=== PATIENT | female | born 1995 | race African-American/Black ===

== ENCOUNTER 2017-09-11 06:28 | Emergency (ER) | payer MEDICAID, OTHER ==
[~2017-09-11] VITALS: Ht 170.2 cm; Wt 116.0 kg
[2017-09-11] MEDS ORDERED: ONDANSETRON HCL 4MG/2ML VIAL IV STA (12:07)
[2017-09-11] MEDS ORDERED: SODIUM CHLORIDE 0.9% 1,000 ML IV ONE (12:07)
[2017-09-11 12:37] LABS: CHLORIDE 106 mEq/L (98-107)
[2017-09-11 12:43] LABS: BASOPHILS % 0.4 % (0.0-2.0); HCG SCREEN NEGATIVE; HEMATOCRIT. 33.3 % (36.0-48.0); MEAN CORPUSCULAR HEMOGLOBIN 20.6 pg (28.0-32.0); MEAN CORPUSCULAR VOLUME 68.3 fL (81.0-99.0); MEAN PLATELET VOLUME 9.6 fl (7.4-10.4); MONOCYTES % 8.6 % (2.0-8.0); PLATELET 393 x1000/uL (130-400); RED BLOOD CELL COUNT 4.87 mill/uL (4.2-5.4); RED CELL DISTRIBUTION WIDTH 20.5 % (11.6-14.6)
[2017-09-11 13:37] LABS: PLATELET ESTIMATE NORMAL
[2017-09-11 13:53] LABS: CLARITY URINE CLEAR (CLEAR); COLOR URINE YELLOW (YELLOW); KETONES URINE 4+ (NEGATIVE); LEUKOCYTE ESTERASE URINE NEGATIVE (NEGATIVE); NITRITE URINE NEGATIVE (NEGATIVE); OCCULT BLOOD URINE NEGATIVE (NEGATIVE); PH URINE 8.5 (4.5-8.0); PROTEIN URINE 1+ (NEGATIVE); SPECIFIC GRAVITY URINE 1.033 (1.005-1.030)
[2017-09-11] MEDS ORDERED: KCL 20MEQ/100ML PREMIX 100 ML IV ONE (14:00)
[2017-09-11 14:28] LABS: *AMPHETAMINES SCREEN URINE NEGATIVE (NEGATIVE); *BARBITURATES SCREEN URINE NEGATIVE (NEGATIVE); *BENZODIAZEPINES SCREEN URINE NEGATIVE (NEGATIVE); *COCAINE SCREEN URINE NEGATIVE (NEGATIVE); METHADONE URINE SCREEN NEGATIVE (NEGATIVE); PHENCYCLIDINE URINE SCREEN NEGATIVE (NEGATIVE)
[2017-09-11 14:30] LABS: CANNABINOID URINE SCREEN PRESUMTIVE POSITIVE (NEGATIVE); OPIATES URINE SCREEN PRESUMTIVE POSITIVE (NEGATIVE)
[2017-09-11] MEDS ORDERED: KETOROLAC 30MG/ML VIAL IV STA (15:03)
[2017-09-11] MEDS ORDERED: POTASSIUM CHLORIDE 10MEQ TABLET SR PO ONE (15:15)
[2017-09-11 16:46] VITALS: BP 149/84
== END 2017-09-11 17:17 | disposition home or self-care (01) ==
LOC: ER 07:22
DX: R10.9 Unspecified abdominal pain (principal); F11.10 Opioid abuse, uncomplicated; F12.10 Cannabis abuse, uncomplicated; R11.2 Nausea with vomiting, unspecified; R03.0 Elevated blood-pressure reading, without diagnosis of hypertension; I88.0 Nonspecific mesenteric lymphadenitis
CPT/HCPCS: 36415; 74176; 76700; 80053; 80305; 81003; 83690; 84703; 85025; 96361; 96374; 96375; 99285; J1885; J2405; J3480; J7030; Z7610

== ENCOUNTER 2021-05-25 16:33 | Emergency (ER) | payer MEDICAID, OTHER ==
[~2021-05-25] VITALS: Ht 170.2 cm; Wt 132.0 kg
[2021-05-25 16:35] VITALS: BP 191/132
[2021-05-25] MEDS ORDERED: ONDANSETRON HCL 4MG/2ML INJ IV STA (16:35)
[2021-05-25] MEDS ORDERED: FAMOTIDINE 20MG/2ML VIAL IV STA (16:35)
[2021-05-25] MEDS ORDERED: SODIUM CHLORIDE 0.9% 1,000 ML IV ONE (16:45)
[2021-05-25 18:05] LABS: BASOPHILS % 0.5 % (0.0-2.0); EOSINOPHILS % 0.1 % (0.0-5.0); HEMATOCRIT. 37.7 % (36.0-48.0); HEMOGLOBIN. 11.6 g/dL (12.0-16.0); MEAN CORPUSCULAR HEMOGLOBIN 23.3 pg (28.0-32.0); MEAN CORPUSCULAR VOLUME 75.8 fL (81.0-99.0); MEAN PLATELET VOLUME 9.8 fl (7.4-10.4); MONOCYTES % 5.1 % (2.0-8.0); NEUTROPHILS % 75.3 % (40.0-76.0); PLATELET 405 x1000/uL (130-400); RED BLOOD CELL COUNT 4.98 mill/uL (4.2-5.4); RED CELL DISTRIBUTION WIDTH 17.5 % (11.6-14.6)
[2021-05-25 18:12] LABS: CHLORIDE 105 mEq/L (98-107)
[2021-05-25 18:13] LABS: HCG SCREEN NEGATIVE
[2021-05-25 18:15] LABS: CLARITY URINE CLOUDY (CLEAR); COLOR URINE DARK YELLOW (YELLOW); KETONES URINE 2+ (NEGATIVE); LEUKOCYTE ESTERASE URINE TRACE (NEGATIVE); NITRITE URINE NEGATIVE (NEGATIVE); OCCULT BLOOD URINE 3+ (NEGATIVE); PH URINE >=9.0 (4.5-8.0); PROTEIN URINE 2+ (NEGATIVE); SPECIFIC GRAVITY URINE 1.052 (1.005-1.030)
[2021-05-25] MEDS ORDERED: HALOPERIDOL LACTATE 5MG/ML VIAL IM ONE (21:30)
[2021-05-25] MEDS ORDERED: METOCLOPRAMIDE HCL 10MG/2ML VIAL IV SCH (23:15)
[2021-05-26] MEDS ORDERED: POTASSIUM-SODIUM PHOSPHATE POWDER PACKET PO SCH
[2021-05-26] MEDS ORDERED: ONDA4TAB5 MT (00:21)
== END 2021-05-26 00:39 | disposition home or self-care (01) ==
LOC: ER 16:33
DX: R11.2 Nausea with vomiting, unspecified (principal); Z87.19 Personal history of other diseases of the digestive system
CPT/HCPCS: 36415; 80053; 81003; 83690; 84703; 85025; 96361; 96372; 96374; 96375; 99284; J1630; J2405; J2765; J3490; J7030

== ENCOUNTER 2021-05-26 13:08 | Emergency (ER) | payer OTHER ==
[~2021-05-26] VITALS: Ht 170.2 cm; Wt 132.0 kg
[~2021-05-26 13:08] MED LIST: ONDA4TAB5 MT
[2021-05-26 13:11] VITALS: BP 169/92
[2021-05-26 13:40] LABS: BASOPHILS % 0.5 % (0.0-2.0); EOSINOPHILS % 0.1 % (0.0-5.0); HEMOGLOBIN. 11.3 g/dL (12.0-16.0); LYMPHOCYTES % 15.4 % (20.0-50.0); MEAN CORPUSCULAR HEMOGLOBIN 23.2 pg (28.0-32.0); MEAN CORPUSCULAR VOLUME 76.3 fL (81.0-99.0); MEAN PLATELET VOLUME 9.7 fl (7.4-10.4); MONOCYTES % 5.1 % (2.0-8.0); NEUTROPHILS % 78.9 % (40.0-76.0); PLATELET 394 x1000/uL (130-400); RED BLOOD CELL COUNT 4.85 mill/uL (4.2-5.4); RED CELL DISTRIBUTION WIDTH 17.7 % (11.6-14.6)
[2021-05-26 13:46] LABS: CHLORIDE 106 mEq/L (98-107)
[2021-05-26] MEDS ORDERED: ONDANSETRON HCL 4MG/2ML INJ IV STA (14:47)
[2021-05-26] MEDS ORDERED: FENTANYL CITRATE/PF 50MCG/ML 2ML VIAL IV ONE (15:00)
[2021-05-26] MEDS ORDERED: SODIUM CHLORIDE 0.9% 1,000 ML IV ONE (15:00)
[2021-05-26] MEDS ORDERED: FAMOTIDINE 20MG/2ML VIAL IV ONE (15:00)
[2021-05-26] MEDS ORDERED: ONDANSETRON 4MG ODT PO ONE (16:45)
[2021-05-26] MEDS ORDERED: FAMOTIDINE 20MG TABLET PO SCH (16:45)
[2021-05-26] MEDS ORDERED: MAGNESIUM/ALUMINUM HYDROXIDE/SIMETHICONE 30ML UDC PO ONE (16:45)
[2021-05-26] MEDS ORDERED: POTASSIUM CHLORIDE 20MEQ TABLET SR PO NR (18:00)
== END 2021-05-26 18:06 | disposition left against medical advice (07) ==
LOC: ER 13:08
DX: R10.9 Unspecified abdominal pain (principal); Z87.19 Personal history of other diseases of the digestive system
CPT/HCPCS: 36415; 80053; 81025; 83690; 85025; 99283; J3010; Q0162; Z7610; J2405; J3490